=== PATIENT | male | born 1990 | race Caucasian/White ===

== ENCOUNTER 2016-09-13 15:21 | Emergency (ER) | payer MEDICAID ==
[~2016-09-13] VITALS: Ht 180.3 cm; Wt 86.0 kg
[2016-09-13] MEDS ORDERED: IBUPROFEN 800 MG TABLET PO ONE (16:45)
[2016-09-13 18:42] VITALS: BP 141/81
== END 2016-09-13 18:46 | disposition home or self-care (01) ==
LOC: EMS 15:28
DX: S80.01XA Contusion of right knee, initial encounter (principal); X58.XXXA Exposure to other specified factors, initial encounter; Y93.62 Activity, american flag or touch football; Y92.89 Other specified places as the place of occurrence of the external cause; Y99.9 Unspecified external cause status
CPT/HCPCS: 29505; 99284